=== PATIENT | female | born 1995 | race Caucasian/White ===

== ENCOUNTER 2023-08-16 03:01 | Emergency (ER) | payer BC, SELFPAY ==
[2023-08-16 03:08] VITALS: BP 136/96; PULSE 82; RESP 16; TEMP 36.9; O2SAT 97; BMI 26.1
[2023-08-16 03:19] LABS: Appearance,Urine CLEAR (Clear); Blood, Urine Negative (Negative); Color,Urine ORANGE (Yellow); Glucose,Urine (UA) Negative (Negative); Ketones,Urine 2+ (Negative); Leukocyte Esterase,Urine Negative (Negative); Microscopic, Urine URINE MICROSCOPIC (MICROSCOPIC); Nitrate,Urine POSITIVE (Negative); Protein,Urine TRACE (Negative); Specific Gravity, Urine >= 1.030 (1.005-1.030)
[2023-08-16 03:25] LABS: Urine Pregnancy, HCG Qual. Negative (Negative)
--- NOTE | 2023-08-16 03:26 | [facility].EDGENADL ---
Discharge Plan Disposition Patient Disposition: Home, Self-Care Condition: Good Prescriptions Prescriptions: New phenazopyridine [Pyridium] 200 mg tablet 200 mg PO Q8H PRN (Reason: pain) Qty: 14 0RF ondansetron 4 mg tablet,disintegrating 4 mg PO Q8H PRN (Reason: nausea and vomiting) 4 Days Qty: 12 0RF sulfamethoxazole-trimethoprim [Bactrim DS] 800-160 mg tablet 1 tab PO BID 10 Days Qty: 20 0RF ketorolac 10 mg tablet 10 mg PO Q8H PRN (Reason: pain) Qty: 10 0RF No Action Lo Loestrin Fe 1 mg-10 mcg (24)/10 mcg (2) Tablet 1 tab PO DAILY Referrals Follow up/Referrals: Provider,Referral, MD [Primary Care Provider] - See instructions Activity Restrictions/Add. Instructions Additional Instructions/Restrictions: You were evaluated in the emergency department today. Please bulk picker your prescriptions at the pharmacy. I recommend close follow-up with your [employer] to make sure that you heal well from your colposcopy. Also follow-up with your primary care provider. Return to the emergency department for any new or worsening symptoms or should her symptoms not improve over the next 3 days. Take the Toradol prescribed to you as needed for pain. You may also take Tylenol in addition to this, but do not take ibuprofen while taking Toradol. Clinical Impressions Clinical Impression: Urinary tract infection Instructions Patient Instructions: DI for Urinary Tract Infection (UTI) Discharge ED Provider: Liyah Finn General Adult HPI General Chief complaint: Urogenital-Female Stated complaint: Frequency,burning with urination Time Seen by Provider: 08/16/23 03:15 Mode of Arrival: Ambulatory Limitations: No Limitations Description of Symptoms (Recalled from ER Triage Doc. by RN): Pt states she thinks she has had a uti for a month. Pt saw pcp 2 weeks ago, and was given abs and antifungal. Pt states she finished course of antibiotic but didnt take antifungal. Pt reports RLQ abd pain, urinary frequency, burning with urination. Pain not relieived with ibuprofen. Ibuprofen last taken 9pm. Was tested for hpv 2 days ago, pt states abd pain worse since then. Abs soft and llq tendewr to palp. History of Present Illness HPI narrative: This patient is a 28-year-old female presenting to the emergency department for evaluation with concern for suprapubic pain, dysuria, urinary frequency, and urinary urgency. She denies that she has had these intermittent symptoms for approximately 1 month. She took a course of Keflex approximately 2 weeks ago, which she completed, however the symptoms then returned. She notes that she had a colposcopy 2 days ago for an abnormal Pap smear, and the colposcopy was reportedly reassuring. She states they did a test at the time, which was negative. She states she was already having dysuria prior to this, but the dysuria got much worse after the procedure. She denies any fevers, chills, flank pain, vomiting, nausea, abnormal vaginal discharge, abnormal vaginal odor, vaginal itching, or vaginal bleeding. She has taken ibuprofen without good improvement. She denies any potential concerns for sexually transmitted infection, she states that she is monogamous with her . She states that they have both been tested and tested negative in the past. Related Data Home Medications Medication Instructions Recorded Confirmed norethindrone 1 mg-ethinyl 1 tab PO DAILY 08/16/23 08/16/23 estradiol 10 mcg (24)-iron 10 mcg(2) tablet (Lo Loestrin Fe) Previous Rx's Medication Instructions Recorded ketorolac 10 mg tablet 10 mg PO Q8H PRN pain #10 tabs 08/16/23 ondansetron 4 mg disintegrating 4 mg PO Q8H PRN nausea and 08/16/23 tablet vomiting 4 days #12 tabs phenazopyridine 200 mg tablet 200 mg PO Q8H PRN pain 6 doses #14 08/16/23 (Pyridium) tabs sulfamethoxazole 800 1 tab PO BID 10 days #20 tabs 08/16/23 mg-trimethoprim 160 mg tablet (Bactrim DS) Allergies Allergy/Ad
[2023-08-16 03:27] LABS: Bilirubin,Urine Negative (Negative)
[2023-08-16 03:56] LABS: Bacteria,Urine 1+ /lpf
[2023-08-16 04:11] VITALS: BP 136/78; PULSE 87; RESP 17; TEMP 36.7; O2SAT 97
[2023-08-19 22:08] LABS: Neisseria gonorrhoeae, NAA Negative (Negative)
== END 2023-08-16 04:13 | disposition home or self-care (01) ==
PROVIDERS: Emergency Provider Emergency Medicine
DX: N39.0 Urinary tract infection, site not specified (principal); R10.30 Lower abdominal pain, unspecified; F17.210 Nicotine dependence, cigarettes, uncomplicated
CPT/HCPCS: 81001; 81025; 87086; 87491; 87591; 96372; 99283